=== PATIENT | female | born 1945 | race Caucasian/White ===

== ENCOUNTER 2021-01-28 10:09 | Emergency (ER) | payer MEDICARE, BC, SELFPAY ==
[2021-01-28 10:29] VITALS: BP 125/70; PULSE 66; RESP 16; TEMP 36.6; O2SAT 95
--- NOTE | 2021-01-28 10:42 | ED.EYEPROB ---
HPI - Eye Problem General Chief complaint: Eye Problems Stated complaint: eye problems Time Seen by Provider: 01/28/21 10:30 Source: patient Mode of arrival: ambulatory Limitations: no limitations History of Present Illness HPI Narrative: Mary Lou Maciel is a 75 yo female with a PMH of HTN, Parkinson's disease, that comes to express care with matting of R eye. First notoced i today, no pain, no injection presently. Visual acuity done. Related Data Home Medications Medication Instructions Recorded Confirmed carbidopa-levodopa 1 tablet BID 01/28/21 01/28/21 duloxetine 60 mg PO HS 01/28/21 01/28/21 gabapentin 300 mg HS 01/28/21 01/28/21 levothyroxine 50 mcg DAILY 01/28/21 01/28/21 losartan 50 mg DAILY 01/28/21 01/28/21 potassium chloride [Klor-Con M20] 20 meq PO DAILY 01/28/21 01/28/21 pramipexole 1 mg HS 01/28/21 01/28/21 propranolol 60 mg PO HS 01/28/21 01/28/21 selegiline HCl 5 mg HS 01/28/21 01/28/21 Allergies Allergy/AdvReac Type Severity Reaction Status Date / Time No Known Allergies Allergy Verified 01/28/21 10:26 Review of Systems Review of Systems: Narrative: CONSTITUTIONAL: Denies fever, chills, sweats. EYES: Denies visual changes, redness, right eye discharge this a.m. ENT: Denies rhinorrhea, congestion, sore throat, otalgia. CARDIOVASCULAR: Denies chest pain, palpitations, edema. RESPIRATORY: Denies dyspnea, wheezing, cough GASTROINTESTINAL: Denies abdominal pain, nausea, vomiting, diarrhea. GENITOURINARY: Denies dysuria, hematuria, abnormal discharge SKIN: Denies rash or itching. NEUROLOGIC: Denies numbness, or focal weakness. PSYCHIATRIC: Denies anxiety or depression. [facility] Past Medical History Medical History HTN (hypertension) Parkinson disease Family History Family History Other Hypertension Social History Social History (Updated 01/28/21 @ 10:46 by Donna Riojas CNP) Smoking status: Never smoker Alcohol intake: never Gender identity (if verbalized by the patient): Female Comments At time of signature, I agree with nursing past medical, surgical, social and family history. There is no relevant family history pertinent to the presenting complaint. Exam Narrative: Exam Narrative: GENERAL: This is a well-nourished, well-developed patient, in mild distress. HEAD: normocephalic, atraumatic. EYES: PERRL. Sclera clear/white. Vision is grossly intact. EARS: External ears normal, . Hearing grossly intact. NOSE: External nose normal without nasal discharge, nares without redness, no rhinorrhea. THROAT: Mucous membranes moist, NECK: Neck supple, non-tender CARDIOVASCULAR: Regular rate and rhythm without murmurs, gallops, or rubs. RESPIRATORY: Clear to auscultation. Breath sounds equal bilaterally. No wheezes, rales, or rhonchi. GASTROINTESTINAL: Abdomen soft, non-tender, SKIN: warm, intact with no suspicious lesions or rash, good texture and turgor. NEURO: awake, alert, and oriented to person, place and time. There were no obvious focal neurologic abnormalities. Steady gait EXTREMITIES: Normal range of motion. BACK: Nontender without deformity Course Course Emergency Course: Patient came to [facility] for medication for eye matting on right this morning Started on tobramycin eyedrops Follow-up with PCP Vital Signs Vital signs: Vital Signs Temperature 97.9 F 01/28/21 10:29 Pulse Rate 66 01/28/21 10:29 Respiratory Rate 16 01/28/21 10:29 Blood Pressure 125/70 01/28/21 10:29 Pulse Oximetry 95 01/28/21 10:29 Temperature 97.9 F 01/28/21 10:29 Pulse Rate 66 01/28/21 10:29 Respiratory Rate 16 01/28/21 10:29 Blood Pressure 125/70 01/28/21 10:29 Pulse Oximetry 95 01/28/21 10:29 MDM - Eye Problem Differential Diagnosis Differential diagnosis: Likely corneal abrasion, conjunctivitis, corneal ulcer and other Critical Care Ti
== END 2021-01-28 10:56 | disposition home or self-care (01) ==
PROVIDERS: Emergency Provider Nurse Practitioner
DX: H10.9 Unspecified conjunctivitis (principal); I10 Essential (primary) hypertension; G20 Parkinson's disease
CPT/HCPCS: 99203; G0463

== ENCOUNTER 2021-03-19 18:53 | Emergency (ER) | payer MEDICARE, BC, SELFPAY ==
[2021-03-19] VITALS (10 sets, daily range): BP systolic 156–210; BP diastolic 84–107; PULSE 69–82; RESP 16–24; TEMP 36.9–37.1; O2SAT 96–100
--- NOTE | ~2021-03-19 | XR_ITS ---
EXAMINATION: XR ribs LT 2V w CXR 2V DATE: 03/19/2021 19:47 INDICATION: Left rib pain post fall in shower TECHNIQUE: PA and lateral views of the chest and 3 views of the left ribs were obtained. COMPARISON: Chest radiograph dated FINDINGS: Nondisplaced anterior left fifth-eighth rib fractures. Minimal linear discoid atelectasis/scarring at the lingula and right middle lobe. No other airspace opacities, pulmonary edema, pleural effusion or pneumothorax. Mild cardiomegaly. Moderate thoracic and upper lumbar spondylosis with mild anterior w edging of a lower thoracic vertebral body. Instrumented anterior and posterior spinal fusion at L4-L5 . IMPRESSION: 1. Nondisplaced anterior left fifth-eighth rib fractures. 2. Mild linear atelectasis/scarring at the lingula and right middle lobe. No pneumothorax or other ac branden cardiopulmonary disease. Reviewed, dictated and finalized at location A. IMPRESSION: 1. Nondisplaced anterior left fifth-eighth rib fractures. 2. Mild linear atelectasis/scarring at the lingula and right middle lobe. No pn eumothorax or other acute cardiopulmonary disease.
--- NOTE | 2021-03-19 19:25 | PC.NURSE ---
Pt BP 210/104 auscultated. PA Ricki aware
[2021-03-19] MEDS: ACETAMINOPHEN 500 MG TABLET 1000 MG PO (19:52)
--- NOTE | 2021-03-19 21:02 | ED.GENADULT ---
HPI - General Adult General Chief complaint: Fall Stated complaint: Fall in shower Time Seen by Provider: 03/19/21 19:17 Source: patient and RN notes reviewed Mode of arrival: ambulatory Limitations: no limitations History of Present Illness HPI narrative: Patient is a 75-year-old female who presents to emergency department for evaluation of left rib pain status post fall that occurred this morning patient was in the shower when the fall occurred. Patient denied head injury syncope loss of consciousness. Patient has unsteady gait secondary to Parkinson's. Patient lives at home with her also has a daughter who visits him daily to assist with care. The home is mainly handicapped assessable. Patient on arrival is in no distress but does have obvious involuntary body movements secondary to her Parkinson's. Related Data Home Medications Medication Instructions Recorded Confirmed carbidopa-levodopa 1 tablet BID 01/28/21 01/28/21 duloxetine 60 mg PO HS 01/28/21 01/28/21 gabapentin 300 mg HS 01/28/21 01/28/21 levothyroxine 50 mcg DAILY 01/28/21 01/28/21 losartan 50 mg DAILY 01/28/21 01/28/21 potassium chloride [Klor-Con M20] 20 meq PO DAILY 01/28/21 01/28/21 pramipexole 1 mg HS 01/28/21 01/28/21 propranolol 60 mg PO HS 01/28/21 01/28/21 selegiline HCl 5 mg HS 01/28/21 01/28/21 Allergies Allergy/AdvReac Type Severity Reaction Status Date / Time No Known Allergies Allergy Verified 03/19/21 19:03 Review of Systems Review of Systems: All systems reviewed & are unremarkable except as noted in HPI and below PMFSH Past Medical History Medical History HTN (hypertension) Parkinson disease Family History Family History Other Hypertension Social History Social History Smoking status: Never smoker Alcohol intake: never Gender identity (if verbalized by the patient): Female Exam Narrative: Exam Narrative: GENERAL: Well-appearing, well-nourished, and in no acute distress. HEAD: Normocephalic, atraumatic. EYES: PERRLA and EOMI. ENT: Nares clear, no rhinorrhea or epistaxis. Mucous membranes moist. CHEST: Clear to auscultation. No respiratory distress. No wheezes rales or rhonchi. Tenderness of the left lateral ribs small amount of bruising HEART: Regular rate and rhythm. No murmur heard. Normal peripheral pulses. ABDOMEN: Soft, nontender, nondistended EXTREMITIES: Normal range of motion. No edema. No cervical thoracic or lumbar tenderness SKIN: Warm, dry, no rash. NEURO: No focal deficits. Alert and oriented x3. Cranial nerves II through XII grossly intact. Normal speech PSYCH: Normal mood and affect. Course Course Emergency Course: Patient in the room in no distress aware of case findings treatment plan diagnosis. Patient hemodynamically stable. Patient is anxious and stressed and does feel comfortable to go home discussion was made with the the patient and the daughter who will help facilitate follow-up. They have been given strict reasons to return and agrees to do so if symptoms worsen Vital Signs Vital signs: Vital Signs Temperature 98.5 F 03/19/21 18:55 Pulse Rate 75 03/19/21 18:55 Respiratory Rate 18 03/19/21 18:55 Blood Pressure 190/97 H 03/19/21 18:55 Pulse Oximetry 100 03/19/21 18:55 Temperature 98.7 F 03/19/21 19:01 Pulse Rate 82 03/19/21 19:01 Respiratory Rate 20 03/19/21 19:01 Blood Pressure 210/104 H 03/19/21 19:01 Pulse Oximetry 97 03/19/21 19:01 Medical Decision Making [facility] Narrative Medical decision making narrative: Patients injury or pain is consistent with musculoskeletal etiology. No signs of neurological or vascular compromise on exam. Compartments and tisues are soft without signs of compartment syndrome. Pain is felt appropriate for further evaluation on an outp
--- NOTE | 2021-03-19 21:37 | PC.NURSE ---
This RN requested to speak with family member present in wr by route agent. Pt's currently in room with pt, and daughter currently in family room requesting update. pt's primary nurse had sent pt's out to speak with daughter and provide her with information, but further explanation of pt's condition was requested. With pt's permission, this rn spoke with pt daughter in family room, updated her on plan of care, and spoke with provider to let him know pt's concerns regarding proper usage of incentive spirometer.
== END 2021-03-19 21:40 | disposition home or self-care (01) ==
PROVIDERS: Emergency Provider Emergency Medicine; PCP Family Medicine
DX: S22.42XA Multiple fractures of ribs, left side, initial encounter for closed fracture (principal); G20 Parkinson's disease; I10 Essential (primary) hypertension; W01.0XXA Fall on same level from slipping, tripping and stumbling without subsequent striking against object, initial encounter
CPT/HCPCS: 71046; 71100; 99283; A9270

== ENCOUNTER → 2021-03-29 16:49 | Outpatient (CLI) | payer MEDICARE, BC, SELFPAY ==
--- NOTE | ~2021-03-29 | MM_ITS ---
EXAMINATION: MM screening karyn BI w paresh HISTORY: Screening mammogram TECHNIQUE: Craniocaudal and mediolateral oblique 3-D tomosynthesis images were obtained and synthetic 2-D images were generated. CAD analysis was submitted and interpreted. COMPARISON: No prior mammogram is available for comparison at this institution. BREAST PARENCHYMAL COMPOSITION: The breasts are almost entirely fatty. FINDINGS: There is no evidence of suspicious mass, calcification, or architectural distortion to sugg est malignancy in either breast. There has been no suspicious interval change. IMPRESSION: 1. No mammographic evidence of malignancy. 2. Recommend routine screening mammography in one year. BI-RADS Category 1: Negative Reviewed, dictated and finalized at location A.
== END ==
PROVIDERS: PCP Family Medicine; Visit Provider Family Medicine
DX: Z12.31 Encounter for screening mammogram for malignant neoplasm of breast (principal)
CPT/HCPCS: 77063; 77067

== ENCOUNTER 2021-07-24 06:56 | Emergency (ER) | payer MEDICARE, BC, OTHER, SELFPAY ==
[2021-07-24] VITALS (7 sets, daily range): BP systolic 121–186; BP diastolic 63–97; PULSE 62–77; RESP 15–20; TEMP 36.3; O2SAT 98–100
--- NOTE | ~2021-07-24 | CT_ITS ---
EXAMINATION: CT brain wo con EXAM DATE: 07/24/2021 07:45 INDICATION: Increasing confusion. Altered mental status. TECHNIQUE: Spiral CT of the head was performed without contrast. Axial, coronal and sagittal images were reviewed. The dose-length product (DLP) for this examination was 605.33 mGy-cm. The exposure w as tailored according to patient size, and iterative reconstruction (ASIR) was used as additional dos e reduction technique. There is no prior study for comparison. FINDINGS: There is no acute intraparenchymal hemorrhage. No evidence of intraparenchymal brain mass lesion. No evidence of acute infarction. Please note that initial head CT has limited sensitivity f or small or acute infarctions. There are old bilateral basal ganglia lacunar infarctions. There is mild periventricular and subcortical hypodensity, nonspecific but probably related to small vessel is chemic disease. There is moderate prominence of the sulci and ventricles related to cerebral atroph y. There is intracranial carotid arteriosclerosis. There are no extra-axial collections. There is no mass effect or midline shift. Patient has had bilateral ocular lens surgery. Soft tissue is unr emarkable. The visualized sinuses and mastoid air cells are well aerated. IMPRESSION: 1. No acute intracranial findings. 2. Chronic age related findings. Reviewed, dictated and finalized at location A. S ENGINEERING MANAGER
--- NOTE | 2021-07-24 07:28 | ED.GENADULT ---
HPI - General Adult General Chief complaint: Unspecified Stated complaint: aggressive Time Seen by Provider: 07/24/21 07:07 History of Present Illness HPI narrative: Patient is a 75-year-old female brought in by family due to aggressive behavior at home, described as refusing to take her medications . Patient has a history of dementia recently diagnosed. Per , this is her third visit in the last month for the same complaint, last time she tried to run out in a busy street . Patient's alert and oriented x3, has no complaints at this time. Patient has been cooperative and pleasant. Patient denies any headache, dizziness, chest pain, shortness of breath, abdominal pain, nausea, vomiting, diarrhea, urinary symptoms, fever or chills. Related Data Home Medications Medication Instructions Recorded Confirmed carbidopa-levodopa 1 tablet BID 01/28/21 01/28/21 duloxetine 60 mg PO HS 01/28/21 01/28/21 gabapentin 300 mg HS 01/28/21 01/28/21 levothyroxine 50 mcg DAILY 01/28/21 01/28/21 losartan 50 mg DAILY 01/28/21 01/28/21 potassium chloride [Klor-Con M20] 20 meq PO DAILY 01/28/21 01/28/21 pramipexole 1 mg HS 01/28/21 01/28/21 propranolol 60 mg PO HS 01/28/21 01/28/21 selegiline HCl 5 mg HS 01/28/21 01/28/21 Allergies Allergy/AdvReac Type Severity Reaction Status Date / Time No Known Allergies Allergy Verified 07/24/21 07:03 Review of Systems Review of Systems: All systems reviewed & are unremarkable except as noted in HPI and below Constitutional: Constitutional: Denies body ache(s), Denies chills, Denies excessive sweating, Denies fatigue, Denies fever(s), Denies headache(s), Denies lethargy, Denies malaise, Denies weakness and Denies weight loss Eyes: Eyes: Denies blurry vision, Denies change in vision and Denies loss of vision ENT: Denies dizziness, Denies ear discharge, Denies headache(s), Denies lip swelling, Denies epistaxis, Denies nasal congestion, Denies neck pain, Denies throat swelling and Denies tongue swelling Cardiovascular: Cardiovascular: Denies chest pain, Denies chest pain at rest, Denies chest pain with activity, Denies diaphoresis, Denies rapid heart rate, Denies edema, Denies irregular heart rhythm, Denies lightheadedness, Denies palpitations, Denies dyspnea and Denies dyspnea on exertion Respiratory: Respiratory: Denies chest congestion, Denies cough, Denies hemoptysis, Denies dyspnea and Denies dyspnea on exertion Gastrointestinal: Gastrointestinal: Denies abdominal pain, Denies melena, Denies hematochezia, Denies diarrhea, Denies nausea, Denies vomiting and Denies hematemesis Musculoskeletal: Musculoskeletal: Denies abnormal gait, Denies deformity, Denies joint swelling, Denies limited range of motion, Denies neck pain and Denies numbness Neurologic: Denies Abnormal speech present, Denies abnormal gait, Denies confusion, Denies dizziness, Denies headache(s), Denies focal weakness, Denies loss of vision, Denies numbness, Denies Other visual disturbances, Denies Sensory deficit (Neuro) and Denies weakness Psychiatric: Psychiatric: Denies confusion, Denies depression, Denies auditory hallucinations, Denies homicidal ideation and Denies suicidal ideation Endocrine: Endocrine: Denies cold intolerance, Denies excessive sweating, Denies fatigue, Denies heat intolerance and Denies palpitations Hematologic/Lymphatic: Hematologic/Lymphatic: Denies easy bleeding and Denies easy bruising Allergic/Immunologic: Allergic/Immunologic: Denies lip swelling, Denies throat swelling and Denies tongue swelling PMFSH Past Medical History Medical History HTN (hypertension) Parkinson disease Family History Family History Other Hypertension Social History Social History Smoking status: Never smoker Alcohol intake: never Gender identity (if verbalized
[2021-07-24 08:24] LABS: Basophils Percent Auto 0.5 % (0.2-1.2); Eosinophils Absolute Auto 0.3 K/mm3 (0-0.3); Eosinophils Percent Auto 3.4 % (0-4.4); Hematocrit 37.5 % (37.0-47.0); Hemoglobin 12.5 g/dL (12.0-15.0); Immature Granulocyte Absolute 0.02 K/mm3 (0.00-0.031); Immature Granulocyte Percent A 0.3 % (0-0.5); Lymphocytes Absolute Auto 1.57 K/mm3 (0.9-3.2); Lymphocytes Percent Auto 20.4 % (18.3-44.2); Mean Corpuscular HGB Conc 33.3 g/dl (32-36); Mean Corpuscular Hemoglobin 31.7 pg (26-34); Mean Corpuscular Volume 95.2 fl (80-100); Monocytes Absolute Auto 0.7 K/mm3 (0.1-0.6); Monocytes Percent Auto 8.7 % (2.6-8.5); Neutrophils Absolute Auto 5.1 K/mm3 (1.3-6.7); Neutrophils Percent Auto 66.7 % (45.5-73.1); Platelet Count Result 221 k/mm3 (150-375); Red Blood Count 3.94 M/mm3 (4.2-5.4); Red Cell Distribution Width 12.5 % (11.5-14.5); White Blood Count 7.7 K/mm3 (4.5-10.0)
[2021-07-24 08:32] LABS: Add Urine Microscopic? NO; Appearance Urine Clear (Clear); Bilirubin Urine Negative (Negative); Blood Urine Negative (Negative); Color Urine Yellow (Yellow); Glucose Urine UA Negative (Negative); Ketones Urine Negative (Negative); Leukocyte Esterase Ur Negative LEU/UL (Negative); Nitrate Urine Negative (Negative); Protein Urine Negative (Negative); Specific Grav Ur 1.011 (1.001-1.035); Urobilinogen Urine Negative mg/dL (<2.0)
[2021-07-24 08:39] LABS: Albumin Level 4.1 g/dL (3.5-5.1); Alkaline Phosphatase 88 U/L (38-126); Anion Gap 5 mmol/L (8-16); Aspartate Amino Transferase 30 U/L (14-36); Bilirubin,Total 0.6 mg/dL (0.2-1.3); Blood Urea Nitrogen 17 mg/dL (7-17); Calcium 10.2 mg/dL (8.4-10.2); Carbon Dioxide 29 mmol/L (22-30); Chloride 104 mmol/L (98-107); Estimated Glomerular Filt Rate > 60; Glucose 103 mg/dL (65-110); Potassium 3.6 mmol/L (3.4-5.0); Sodium 138 mmol/L (137-145)
--- NOTE | 2021-07-24 08:45 | PC.NURSE ---
food tray ordered for pt at this time
[2021-07-24 09:17] LABS: Alanine Aminotransferase < 6 U/L (4-35)
== END 2021-07-24 10:50 | disposition home or self-care (01) ==
PROVIDERS: Emergency Provider Emergency Medicine; PCP Family Medicine
DX: G20 Parkinson's disease (principal); F02.81 Dementia in other diseases classified elsewhere, unspecified severity, with behavioral disturbance; I10 Essential (primary) hypertension
CPT/HCPCS: 36415; 70450; 80053; 81003; 85025; 99284

== ENCOUNTER 2023-05-05 00:17 | Emergency (ER) | payer MEDICARE, BC, OTHER, SELFPAY ==
[2023-05-05] VITALS (12 sets, daily range): BP systolic 117–156; BP diastolic 47–99; PULSE 59–95; RESP 16–100; TEMP 36.9; O2SAT 94–100
--- NOTE | ~2023-05-05 | CT_ITS ---
EXAMINATION: CT brain wo con DATE: 05/05/2023 01:44 INDICATION: Head injury. TECHNIQUE: Computed tomography (CT) of the head was performed without intravenous contrast. The mA wa s adjusted according to patient size. Iterative reconstruction technique was employed. The dose-lengt h product was 681.00 mGy-cm. COMPARISON: Head CT 07/24/2021 FINDINGS: There are old infarcts in the bilateral basal ganglia. There are scattered areas of low att enuation in the cerebral white matter. There is no intracranial hemorrhage, acute infarction, or abno rmal intracranial mass lesion. The ventricles are normal in size. There are likely changes of ocular lens replacement surgeries. There is mild mucosal thickening in the paranasal sinuses. The mastoid ai r cells are normal. IMPRESSION: 1. Old infarcts in the bilateral basal ganglia. 2. Mild nonspecific cerebral white matter disease, which likely represents chronic small vessel ische dee dee disease. Reviewed, dictated and finalized at location E. IMPRESSION: 1. Old infarcts in the bilateral basal ganglia. 2. 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
--- NOTE | ~2023-05-05 | XR_ITS ---
EXAMINATION: XR hip BI 2V w AP pelvis DATE: 05/05/2023 02:16 INDICATION: Left-sided pain TECHNIQUE: AP view of the pelvis and two views of each hip were obtained. COMPARISON: None. FINDINGS: Bone alignment is normal. There is no fracture. There is mild osteoarthritis of the hips. P hleboliths are noted in the pelvis. There are surgical changes of the lower lumbar spine. IMPRESSION: 1. No acute osseous abnormality. Reviewed, dictated and finalized at location A.
--- NOTE | ~2023-05-05 | CT_ITS ---
EXAMINATION: CT cervical spine wo con DATE: 05/05/2023 01:44 INDICATION: Head injury. TECHNIQUE: Computed tomography (CT) of the cervical spine was performed without intravenous contrast. Automated exposure control and iterative reconstruction technique were employed. The dose-length pro duct was 213.18 mGy-cm. COMPARISON: None FINDINGS: There is mild scarring at the lung apices. There is a multinodular goiter extending into th e superior mediastinum with nodules measuring up to at least 1.9 cm. There is 4 degrees levocurvature of cervical spine. There is 2 mm anterolisthesis of C3 on C4, C4 on C5, and C7 on T1. Vertebral body heights are normal. There is moderately decreased disc height at C2-C3 and C3-C4, severely decreased disc height from C4-C5 through C6-C7, and mildly decreased disc height at C7-T1. The following disc levels are specifically discussed: C2-C3: There is severe right and mild left uncovertebral joint osteoarthritis. There is severe bilate ral facet joint osteoarthritis. There is mild right neural foraminal stenosis. There is no central ca nal stenosis. C3-C4: There is severe bilateral uncovertebral joint osteoarthritis. There is severe right facet join t osteoarthritis. There is ankylosis of left facet joint with severe hypertrophy. There is mild right and moderate left neural foraminal stenosis. There is mild central canal stenosis. C4-C5: There is severe bilateral uncovertebral joint osteoarthritis. There is severe bilateral facet joint osteoarthritis. There is mild bilateral neural foraminal stenosis. There is mild central canal stenosis. C5-C6: There is severe bilateral uncovertebral joint osteoarthritis. There is severe bilateral facet joint osteoarthritis. There is mild bilateral neural foraminal stenosis. There is mild central canal stenosis. C6-C7: There is severe bilateral uncovertebral joint osteoarthritis. There is severe bilateral facet joint osteoarthritis. There is mild bilateral neural foraminal stenosis. There is mild central canal stenosis. C7-T1: There is no uncovertebral joint osteoarthritis. There is severe bilateral facet joint osteoart hritis. There is mild bilateral neural foraminal stenosis. There is no central canal stenosis. IMPRESSION: 1. No fracture. 2. Severe cervical spondylosis. 3. Multinodular goiter. Consider thyroid ultrasound for risk stratification. Reviewed, dictated and finalized at location E.
--- NOTE | ~2023-05-05 | XR_ITS ---
EXAMINATION: XR chest 1V portable INDICATION: Chest pain TECHNIQUE: Portable AP chest at 0145 hours COMPARISON: 03/19/2021 FINDINGS: There is subsegmental atelectasis of the left lung base. The lungs are free of acute opacit ies. No pleural effusion or pneumothorax. The cardiomediastinal silhouette is normal. IMPRESSION: 1. No acute cardiopulmonary abnormality. Reviewed, dictated and finalized at location A.
--- NOTE | 2023-05-05 01:23 | ECG_ITS ---
Measurements Intervals [place] Rate: 61 P: 58 UT: 167 QRS: 20 QRSD: 88 T: 71 QT: 415 QTc: 421 Interpretive Statements SINUS RHYTHM BORDERLINE ST-T WAVE ABNORMALITY- ANTEROLAT/HIGH LAT LEADS BASELINE ARTIFACT- I, II, III, AVR, AVL, AVF, V1-V6 BORDERLINE ECG NO PREVIOUS ECG AVAILABLE FOR COMPARISON Electronically Signed On 05-05-2023 7:16:42 CDT by Herrera Segura D.O.
--- NOTE | 2023-05-05 01:24 | ED.FALL ---
HPI - Fall General Chief Complaint: Fall <Carlotta Mason PA-C - Last Filed: 05/05/23 04:27> Stated Complaint: GLF <Carlotta Mason PA-C - Last Filed: 05/05/23 04:27> Time Seen by Provider: 05/05/23 00:24 <Carlotta Mason PA-C - Last Filed: 05/05/23 04:27> History of Present Illness HPI Narrative: 77-year-old female with a history of Parkinson's, hypertension, dementia reports via EMS for [place] after a ground-level fall that occurred at 2030. The patient is a poor historian and is somnolent on exam. She is able to follow commands and does know that she is at [facility]. She denies pain anywhere including headache, chest pain or shortness of breath, back pain or neck pain, abdominal pain, upper or lower extremity pain. Per EMS, the patient fell out of her wheelchair and hit her head. The patient is new to the assisted facility and they are unaware of her baseline mental status. Apparently she takes a sedative at night to assist with sleep. She does not remember falling and is unable to provide more history. C-collar in place. Per chart review, patient is on multiple sedatives including Alprazolam, gabapentin and Seroquel <Carlotta Mason PA-C - Last Filed: 05/05/23 04:27> Related Data Home Medications: Home Medications Medication Instructions Recorded Confirmed carbidopa 25 mg-levodopa 100 mg 1 tablet BID 01/28/21 01/28/21 tablet duloxetine 60 mg capsule,delayed 60 mg PO HS 01/28/21 01/28/21 release gabapentin 100 mg capsule 300 mg HS 01/28/21 01/28/21 levothyroxine 50 mcg tablet 50 mcg DAILY 01/28/21 01/28/21 losartan 50 mg tablet 50 mg DAILY 01/28/21 01/28/21 potassium chloride 20 mEq 20 meq PO DAILY 01/28/21 01/28/21 tablet,extended release(part/cryst) (Klor-Con M) pramipexole 1 mg tablet 1 mg HS 01/28/21 01/28/21 propranolol 60 mg capsule,24 60 mg PO HS 01/28/21 01/28/21 hr,extended release selegiline HCl 5 mg capsule 5 mg HS 01/28/21 01/28/21 <Carlotta Mason PA-C - Last Filed: 05/05/23 04:27> Allergies/Adverse Reactions: Allergies Allergy/AdvReac Type Severity Reaction Status Date / Time No Known Allergies Allergy Verified 07/24/21 07:03 <Carlotta Mason PA-C - Last Filed: 05/05/23 04:27> Review of Systems Review of Systems: CONSTITUTIONAL: Denies fever, chills EYES: Denies visual changes, redness, or discharge. ENT: Denies rhinorrhea, congestion, sore throat, or otalgia. CARDIOVASCULAR: Denies chest pain, palpitations, or edema. RESPIRATORY: Denies cough or dyspnea. GASTROINTESTINAL: Denies abdominal pain, nausea, vomiting, or diarrhea. GENITOURINARY: Denies dysuria or hematuria. SKIN: Denies rash or itching. MUSCULOSKELETAL: Denies back pain, joint pain, or myalgia. NEUROLOGIC: Denies headache, numbness, dizziness, or weakness. PSYCHIATRIC: Denies anxiety or depression. <Carlotta Mason PA-C - Last Filed: 05/05/23 04:27> [facility] Past Medical History Medical History: Medical History HTN (hypertension) Parkinson disease <Carlotta Mason PA-C - Last Filed: 05/05/23 04:27> Family History Family History: Family History Other Hypertension <Carlotta Mason PA-C - Last Filed: 05/05/23 04:27> Social History Social History: Social History Smoking status: Never smoker Alcohol intake: never Gender identity (if verbalized by the patient): Female <Carlotta Mason PA-C - Last Filed: 05/05/23 04:27> Exam Narrative: GENERAL: Well-appearing, in no acute distress. C-collar in place. Somnolent, but is arousable to verbal stimuli and able to follow commands. HEAD: Normocephalic, atraumatic EYES: PERRLA, EOMI ENT: Nares clear. Mucous membranes dry. Oropharynx without tonsillar hypertrophy exudate or other les
[2023-05-05 02:34] LABS: Basophils Percent Auto 0.4 % (0.2-1.2); Eosinophils Absolute Auto 0.2 K/mm3 (0-0.3); Eosinophils Percent Auto 2.1 % (0-4.4); Hematocrit 36.6 % (37.0-47.0); Immature Granulocyte Absolute 0.04 K/mm3 (0.00-0.031); Immature Granulocyte Percent A 0.4 % (0-0.5); Lymphocytes Absolute Auto 1.97 K/mm3 (0.9-3.2); Lymphocytes Percent Auto 18.7 % (18.3-44.2); Mean Corpuscular HGB Conc 32.8 g/dl (32-36); Mean Corpuscular Hemoglobin 31.2 pg (26-34); Mean Corpuscular Volume 95.1 fl (80-100); Mean Platelet Volume 9.7 fl (7.4-10.4); Monocytes Absolute Auto 0.9 K/mm3 (0.1-0.6); Monocytes Percent Auto 8.1 % (2.6-8.5); Neutrophils Absolute Auto 7.4 K/mm3 (1.3-6.7); Neutrophils Percent Auto 70.3 % (45.5-73.1); Platelet Count Result 229 k/mm3 (150-375); Red Blood Count 3.85 M/mm3 (4.2-5.4); White Blood Count 10.5 K/mm3 (4.5-10.0)
[2023-05-05] MEDS: SODIUM CHLORIDE 0.9% IV 1,000 ML 999 ML IV CONT ×2 (02:53→04:15)
[2023-05-05 02:54] LABS: Acetaminophen < 10 ug/mL (10-30); Ammonia < 9 umol/L (9-30); Ethanol < 10 mg/dL (<10); Salicylate < 1.0 mg/dL (2-20)
[2023-05-05 03:02] LABS: Alanine Aminotransferase 17 U/L (6-35); Albumin Level 3.6 g/dL (3.5-5.1); Alkaline Phosphatase 79 U/L (38-126); Anion Gap 7 mmol/L (8-16); Aspartate Amino Transferase 23 U/L (14-36); Bilirubin,Total 0.5 mg/dL (0.2-1.3); Blood Urea Nitrogen 19 mg/dL (7-17); Calcium 9.9 mg/dL (8.4-10.2); Carbon Dioxide 22 mmol/L (22-30); Chloride 109 mmol/L (98-107); Estimated CRCL calculation 58 ml/min; Estimated Glomerular Filt Rate > 60; Glucose 101 mg/dL (65-110); Potassium 3.6 mmol/L (3.4-5.0); Sodium 138 mmol/L (137-145)
[2023-05-05 03:06] LABS: Troponin I < 0.012 ng/mL (0.000-0.034)
[2023-05-05 03:49] LABS: Creatine Kinase 75 U/L (30-135)
[2023-05-05 04:06] LABS: Appearance Urine Clear (Clear); Bilirubin Urine Negative (Negative); Blood Urine Negative (Negative); Color Urine Yellow (Yellow); Glucose Urine UA Negative (Negative); Ketones Urine Negative (Negative); Leukocyte Esterase Ur Negative LEU/UL (Negative); Nitrate Urine Negative (Negative); Protein Urine Negative (Negative); Specific Grav Ur 1.015 (1.001-1.035); Urobilinogen Urine 0.2 mg/dL (<2.0)
[2023-05-05 04:19] LABS: NT Pro B Type Natriuretic Pept 194 pg/mL (19.9-100)
[2023-05-05 04:28] LABS: Amphetamine Screen Urine Negative (Negative); Barbiturate Screen Urine Negative (Negative); Benzodiazepines Screen Urine Negative (Negative); Cannabinoid Screen Urine Negative (Negative); Cocaine Screen Urine Negative (Negative); Methadone Screen Urine Negative (Negative); Opiate Screen Urine Negative (Negative); Phencyclidine Screen Urine Negative (Negative)
[2023-05-05 04:33] LABS: Add Urine Microscopic? NO
== END 2023-05-05 11:00 ==
PROVIDERS: Physician Assistant; Emergency Provider Emergency Medicine; PCP Family Medicine
DX: R41.82 Altered mental status, unspecified (principal); G20 Parkinson's disease; I10 Essential (primary) hypertension; F03.90 Unspecified dementia, unspecified severity, without behavioral disturbance, psychotic disturbance, mood disturbance, and anxiety; Z79.899 Other long term (current) drug therapy; R94.31 Abnormal electrocardiogram [ECG] [EKG]; W05.0XXA Fall from non-moving wheelchair, initial encounter
CPT/HCPCS: 36415; 70450; 71045; 72125; 73521; 80053; 80307; 81003; 82140; 82550; 83880; 84443; 84484; 85025; 93005; 96360; 96361; 99284; J7030

== ENCOUNTER 2023-07-03 10:47 | Emergency (ER) | payer MEDICARE, BC, OTHER, SELFPAY ==
--- NOTE | ~2023-07-03 | XR_ITS ---
EXAMINATION: XR chest 1V portable DATE: 07/03/2023 12:39 INDICATION: Emesis. TECHNIQUE: A single frontal view of the chest was obtained. COMPARISON: Chest single view 05/05/2023, cervical spine CT 05/05/2023 FINDINGS: There is mild atelectasis in the lower lung zones. No pleural effusion or pneumothorax. The heart size is normal. There is an intrathoracic goiter. IMPRESSION: 1. Mild atelectasis in the lower lung zones. 2. Intrathoracic goiter. Reviewed, dictated and finalized at location E.
--- NOTE | ~2023-07-03 | CT_ITS ---
EXAMINATION: CT abdomen pelvis w con DATE: 07/03/2023 12:53 INDICATION: Hematemesis versus small bowel obstruction. TECHNIQUE: Computed tomography (CT) of the abdomen and pelvis was performed with 100 mL Omnipaque-350 intravenous contrast. Automated exposure control and iterative reconstruction technique were employe d. The dose-length product was 356.62 mGy-cm. COMPARISON: None FINDINGS: Mild dependent and basilar atelectasis in the bilateral lower lungs. Mild cardiomegaly. Small pericar dial effusion. 1.5 similar cyst in the left hepatic lobe. Gallbladder, spleen, pancreas, bilateral ad renal glands and kidneys are normal. No abnormal bowel wall thickening or obstruction. The appendix i s not visualized. No pericecal inflammatory change to suggest acute appendicitis. Bladder is normal. Comment bilateral parametrial veins and draining gonadal veins which can be seen in the setting of pe lvic vascular congestion. Age-appropriate uterine atrophy. Bilateral adnexa are unremarkable. No free intraperitoneal gas or fluid. No pathologically enlarged abdominal or pelvic lymphadenopathy. Modera te lumbar and lower thoracic spondylosis with combined instrumented anterior and posterior spinal fus ion at L4-L5. Chronic anterior wedging at T11 and T12. IMPRESSION: 1. No acute intra-abdominal/pelvic process. 2. Mild cardiomegaly and small pericardial effusion. Reviewed, dictated and finalized at location A.
[2023-07-03 10:54] VITALS: BP 158/86; PULSE 60; RESP 13; RESP 18; TEMP 36.8; O2SAT 100
[2023-07-03 11:26] LABS: Basophils Percent Auto 0.6 % (0.2-1.2); Eosinophils Absolute Auto 0.3 K/mm3 (0-0.3); Eosinophils Percent Auto 3.6 % (0-4.4); Hematocrit 38.4 % (37.0-47.0); Hemoglobin 12.3 g/dL (12.0-15.0); Immature Granulocyte Absolute 0.01 K/mm3 (0.00-0.031); Immature Granulocyte Percent A 0.1 % (0-0.5); Lymphocytes Absolute Auto 1.45 K/mm3 (0.9-3.2); Lymphocytes Percent Auto 20.3 % (18.3-44.2); Mean Corpuscular Hemoglobin 31.1 pg (26-34); Mean Platelet Volume 9.8 fl (7.4-10.4); Monocytes Absolute Auto 0.5 K/mm3 (0.1-0.6); Monocytes Percent Auto 6.4 % (2.6-8.5); Neutrophils Absolute Auto 4.9 K/mm3 (1.3-6.7); Platelet Count Result 199 k/mm3 (150-375); Red Blood Count 3.96 M/mm3 (4.2-5.4); Red Cell Distribution Width 13.2 % (11.5-14.5); White Blood Count 7.2 K/mm3 (4.5-10.0)
[2023-07-03 11:41] LABS: Alanine Aminotransferase 10 U/L (6-35); Alkaline Phosphatase 78 U/L (38-126); Anion Gap 3 mmol/L (8-16); Aspartate Amino Transferase 25 U/L (14-36); Bilirubin,Total 0.7 mg/dL (0.2-1.3); Blood Urea Nitrogen 22 mg/dL (7-17); Calcium 10.7 mg/dL (8.4-10.2); Carbon Dioxide 30 mmol/L (22-30); Chloride 107 mmol/L (98-107); Estimated Glomerular Filt Rate > 60; Glucose 98 mg/dL (65-110); Lipase 46 U/L (23-300); Potassium 3.6 mmol/L (3.4-5.0); Sodium 140 mmol/L (137-145)
[2023-07-03 11:43] VITALS: BP 117/59; PULSE 82; RESP 17; O2SAT 93
[2023-07-03 11:45] VITALS: BP 125/70; RESP 23; O2SAT 96
[2023-07-03 11:46] VITALS: PULSE 64; RESP 21; O2SAT 94
[2023-07-03 12:00] VITALS: PULSE 61; RESP 23
[2023-07-03 12:23] LABS: Appearance Urine Clear (Clear); Bilirubin Urine Negative (Negative); Blood Urine Negative (Negative); Color Urine Dark Yellow (Yellow); Glucose Urine UA Negative (Negative); Ketones Urine Negative (Negative); Leukocyte Esterase Ur Negative LEU/UL (Negative); Nitrate Urine Negative (Negative); Protein Urine Negative (Negative); Specific Grav Ur 1.019 (1.001-1.035); Urobilinogen Urine 0.2 mg/dL (<2.0); pH Urine 6.5 (5.0-9.0)
--- NOTE | 2023-07-03 12:27 | ECG_ITS ---
Measurements Intervals [place] Rate: 64 P: 59 WA: 165 QRS: 16 QRSD: 98 T: 50 QT: 414 QTc: 429 Interpretive Statements SINUS RHYTHM NONSPECIFIC T-WAVE ABNORMALITY- ANT/INF LEADS BASELINE ARTIFACT- I, II, III, AVR, AVL, AVF, V1-V6 BORDERLINE ECG COMPARED TO ECG 05/05/2023 03:10:13 NO SIGNIFICANT CHANGES Electronically Signed On 07-03-2023 13:57:34 CDT by Herrera Segura D.O.
--- NOTE | 2023-07-03 12:31 | ED.GENADULT ---
HPI - General Adult General Chief complaint: Unspecified <PAULETTE Collins Last Filed: 07/03/23 19:26> Stated complaint: r/o sbo <PAULETTE Collins Last Filed: 07/03/23 19:26> Time Seen by Provider: 07/03/23 11:37 <PAULETTE Collins Last Filed: 07/03/23 19:26> History of Present Illness HPI narrative: 77-year-old female with a history of Parkinson's and hypertension reports via EMS for [place] for reported brown-colored emesis after eating breakfast this morning. Patient is confused and is unable to provide history. When I asked her why she is here, she stated I have a dog and he was anxious yesterday. She denies chest pain, shortness of breath, known fever, abdominal pain, urinary complaints. <PAULETTE Collins Last Filed: 07/03/23 19:26> Related Data Home medications: Home Medications Medication Instructions Recorded Confirmed carbidopa 25 mg-levodopa 100 mg 1 tablet BID 01/28/21 01/28/21 tablet duloxetine 60 mg capsule,delayed 60 mg PO HS 01/28/21 01/28/21 release gabapentin 100 mg capsule 300 mg HS 01/28/21 01/28/21 levothyroxine 50 mcg tablet 50 mcg DAILY 01/28/21 01/28/21 losartan 50 mg tablet 50 mg DAILY 01/28/21 01/28/21 potassium chloride 20 mEq 20 meq PO DAILY 01/28/21 01/28/21 tablet,extended release(part/cryst) (Klor-Con M) pramipexole 1 mg tablet 1 mg HS 01/28/21 01/28/21 propranolol 60 mg capsule,24 60 mg PO HS 01/28/21 01/28/21 hr,extended release selegiline HCl 5 mg capsule 5 mg HS 01/28/21 01/28/21 <PAULETTE Collins Last Filed: 07/03/23 19:26> Allergies/adverse reactions: Allergies Allergy/AdvReac Type Severity Reaction Status Date / Time No Known Allergies Allergy Verified 07/24/21 07:03 <PAULETTE Collins Filed: 07/03/23 19:26> Review of Systems Review of Systems: CONSTITUTIONAL: Denies fever, chills EYES: Denies visual changes, redness, or discharge. ENT: Denies rhinorrhea, congestion, sore throat, or otalgia. CARDIOVASCULAR: Denies chest pain, palpitations, or edema. RESPIRATORY: Denies cough or dyspnea. GASTROINTESTINAL: See HPI GENITOURINARY: Denies dysuria or hematuria. SKIN: Denies rash or itching. MUSCULOSKELETAL: Denies back pain, joint pain, or myalgia. NEUROLOGIC: See HPI PSYCHIATRIC: Denies anxiety or depression. <Carlotta Mason PA-C - Last Filed: 07/03/23 19:26> [facility] Past Medical History Medical History: Medical History HTN (hypertension) Parkinson disease <Carlotta Mason PA-C - Last Filed: 07/03/23 19:26> Family History Family History: Family History Other Hypertension <Carlotta Mason PA-C - Last Filed: 07/03/23 19:26> Social History Social History: Social History Smoking status: Never smoker Alcohol intake: never Gender identity (if verbalized by the patient): Female <Carlotta Mason PA-C - Last Filed: 07/03/23 19:26> Exam Narrative: GENERAL: Well-appearing, in no acute distress. Patient resting comfortably in exam bed. HEAD: Normocephalic EYES: PERRLA ENT: Nares clear. Mucous membranes moist. Oropharynx without tonsillar hypertrophy exudate or other lesions. NECK: Supple. CHEST: No respiratory distress. Clear to auscultation, no adventitious breath sounds. HEART: Regular rate and rhythm. No murmur heard. Normal peripheral pulses. ABDOMEN: Soft, nontender, normal active bowel sounds. No CVA tenderness. Negative Hemoccult EXTREMITIES: Normal range of motion. No edema. Orthotic device in place over left lower extremity. Orthotic removed, no skin breakdown or ulcerations. SKIN: Warm, dry, no rash. NEURO: No focal deficits. Alert and oriented x1. Resting tremor to bilateral upper extremities. She is moving all extremities spont
[2023-07-03 12:32] LABS: Add Urine Microscopic? NO
[2023-07-03] MEDS: SODIUM CHLORIDE 0.9% IV 1,000 ML 999 ML IV CONT (13:15)
== END 2023-07-03 18:03 ==
PROVIDERS: Preventive Medicine Aerospace Medicine; Emergency Provider Physician Assistant; PCP Family Medicine
DX: I31.39 Other pericardial effusion (noninflammatory) (principal); E04.8 Other specified nontoxic goiter; R11.10 Vomiting, unspecified; G20.A1 Parkinson's disease without dyskinesia, without mention of fluctuations; I10 Essential (primary) hypertension; R94.31 Abnormal electrocardiogram [ECG] [EKG]; I51.7 Cardiomegaly
CPT/HCPCS: 36415; 71045; 74177; 80053; 81003; 83690; 85025; 93005; 96360; 99284; J7030; Q9967

== ENCOUNTER 2023-12-25 09:12 | Emergency (ER) | payer MEDICARE, BC, OTHER, SELFPAY ==
--- NOTE | ~2023-12-25 | US_ITS ---
EXAMINATION:US venous doppler LE RT INDICATION:Tibial plateau fracture. Right leg pain and swelling TECHNIQUE: Multiple grayscale, color flow and Doppler images of the right lower extremity deep venous systems were obtained and reviewed. COMPARISON:No prior studies for comparison. FINDINGS: The common femoral, superficial femoral and popliteal veins demonstrate normal respiratory variation, augmentation and compressibility. Color flow is also seen within the posterior tibial, pe roneal, greater saphenous and profunda veins. IMPRESSION: 1: No lower extremity deep venous thrombosis. Reviewed, dictated and finalized at location B.
--- NOTE | ~2023-12-25 | XR_ITS ---
EXAMINATION: XR tibia fibula RT 2V DATE: 12/25/2023 11:56 INDICATION: Right lower leg pain and swelling post recent fracture TECHNIQUE: AP and lateral views of the right tibia and fibula were obtained. COMPARISON: None. FINDINGS: There is intra-articular fracture with up to 4 mm depression of a large portion of the ante rior and lateral aspects of the lateral tibial plateau. No other fractures identified. Mild patellofe moral and ankle joint osteoarthritis. First tarsal metatarsal arthrodesis with a pair of lag screws a t the right midfoot extending between the base of the first metatarsal and the medial and middle cune iforms. There is mild soft tissue swelling with subcutaneous edema about the knee and proximal lower leg. IMPRESSION: 1. 4 mm depression of an intra-articular fracture of the anterolateral aspect of the right lateral ti bial plateau. Reviewed, dictated and finalized at location A. IMPRESSION: 1. 4 mm depression of an intra-articular fracture of the anterolateral aspect o f the right lateral tibial plateau.
[2023-12-25 09:29] VITALS: BP 129/82; PULSE 95; RESP 16; TEMP 36.6; O2SAT 97
[2023-12-25 12:20] VITALS: BP 132/86; PULSE 102; RESP 18; O2SAT 96
--- NOTE | 2023-12-25 12:51 | ED.LOWEXIN ---
HPI - Extremity Injury (Lower) General Chief Complaint: Extremity Injury, Lower Stated Complaint: right leg fracture Time Seen by Provider: 12/25/23 12:50 Source: patient, family (son in law) and EMS Mode of arrival: EMS Limitations: dementia History of Present Illness HPI Narrative: Patient presents after reportedly sustaining a fracture to her lateral tibia R leg. Staff was reportedly unaware of the circumstances. A and O x1 at baseline per family due to Parkinsons/dementia. She has been noted to slide out but no clear/distinct fall so unclear when injury was sustained. X ray at been done at facility. Documentation from facility requesting venous study. Wheelchair bound. Family concerned she hasn't received her morning medications and is missing her afternoon medications. Related Data Home Medications Medication Instructions Recorded Confirmed carbidopa 25 mg-levodopa 100 mg 1 tablet PO DAILY 12/25/23 12/25/23 tablet gabapentin 100 mg capsule 100 mg PO HS 12/25/23 gabapentin 300 mg capsule 300 mg PO BID 12/25/23 12/25/23 levothyroxine 75 mcg tablet 75 mcg PO DAILY 12/25/23 12/25/23 losartan 50 mg tablet 50 mg PO DAILY 12/25/23 12/25/23 mirtazapine 15 mg tablet 15 mg PO HS 12/25/23 potassium chloride 10 mEq 10 meq PO DAILY 12/25/23 12/25/23 tablet,extended release quetiapine 50 mg tablet 50 mg PO HS 12/25/23 venlafaxine 100 mg tablet 100 mg PO BID 12/25/23 Allergies Allergy/AdvReac Type Severity Reaction Status Date / Time No Known Allergies Allergy Verified 07/24/21 07:03 [facility] Past Medical History Medical History Alzheimer's disease with late onset Anxiety disorder, unspecified Cognitive communication deficit HTN (hypertension) Hypertensive heart disease without heart failure Major depressive disorder Parkinson disease Restless legs syndrome Weakness Family History Family History Other Hypertension Social History Social History (Updated 12/29/23 @ 19:36 by Digna Orellana MD) Smoking status: Never smoker Alcohol intake: never Living arrangements: long term Additional living arrangements comments: Wheelchair bound Gender identity (if verbalized by the patient): Female Exam Narrative: GENERAL: Well-appearing, well-nourished, and in no acute distress. HEAD: Normocephalic, atraumatic. EYES: Non injected, non icteric ENT: Nares clear, no rhinorrhea or epistaxis. NECK: Supple. CHEST: Non labored. No respiratory distress. HEART: Regular rate and rhythm. . ABDOMEN: Soft, nondistended. EXTREMITIES: Right knee larger than left knee. No edema. SKIN: Warm, dry, no rash. NEURO: No focal deficits. Alert and oriented to self only. PSYCH: Normal mood and affect. Course Vital Signs Vital signs: Vital Signs Temperature 98 F 12/25/23 09:29 Pulse Rate 95 12/25/23 09:29 Respiratory Rate 16 12/25/23 09:29 Blood Pressure 129/82 12/25/23 09:29 Pulse Oximetry 97 12/25/23 09:29 Oxygen Delivery Room Air 12/25/23 09:29 Temperature 98 F 12/25/23 09:29 Pulse Rate 88 12/25/23 13:44 Respiratory Rate 18 12/25/23 13:44 Blood Pressure 162/65 H 12/25/23 13:44 Pulse Oximetry 96 12/25/23 13:44 Oxygen Delivery Room Air 12/25/23 09:29 MDM - Extremity Injury (Lower) MDM Narrative Medical decision making narrative: Patient presents with report of a lateral tibia fracture R leg. Details of when injury occurred are unclear though reportedly imaging had already been done but can not be viewed. In the ED she is afebrile with VS within normal limits. Will repeat imaging which does confirm the above. Documentation from facility also seems to indicate DVT study was requested. Ordered and performed but negative for acute process. Requested that RN place orders for any medications patient was due for thus far today to be placed under
[2023-12-25 13:44] VITALS: BP 162/65; PULSE 88; RESP 18; O2SAT 96
[2023-12-25] MEDS: HYDROcodone/acetaminophen (*CRX) 5-325 MG TABLET 1 TAB PO (13:44)
--- NOTE | 2023-12-25 14:53 | PC.NURSE ---
Pt to ultrasound at this time.
[2023-12-25] MEDS: CARBIDOPA/LEVODOPA 12.5/50 MG TABLET 1 TABLET PO (15:26)
[2023-12-25] MEDS: POTASSIUM CHLORIDE 10 MEQ ER TABLET PO (15:27)
[2023-12-25] MEDS: LEVOTHYROXINE SODIUM 75 MCG TABLET PO (15:27)
[2023-12-25] MEDS: GABAPENTIN 300 MG CAPSULE PO (15:27)
[2023-12-25] MEDS: LOSARTAN POTASSIUM 50 MG TABLET PO (15:27)
== END 2023-12-25 16:25 ==
PROVIDERS: Emergency Provider Student in an Organized Health Care Education/Training Program; PCP Family Medicine
DX: S82.141A Displaced bicondylar fracture of right tibia, initial encounter for closed fracture (principal); R22.41 Localized swelling, mass and lump, right lower limb; G30.1 Alzheimer's disease with late onset; F02.80 Dementia in other diseases classified elsewhere, unspecified severity, without behavioral disturbance, psychotic disturbance, mood disturbance, and anxiety; G20.A1 Parkinson's disease without dyskinesia, without mention of fluctuations; G25.81 Restless legs syndrome; I11.9 Hypertensive heart disease without heart failure; X58.XXXA Exposure to other specified factors, initial encounter
CPT/HCPCS: 73590; 93971; 99284; A9270